=== PATIENT | female | born 1985 | race Asian ===

== ENCOUNTER 2017-05-16 06:05 | Inpatient (IN) | payer OTHER ==
--- NOTE | 2017-05-06 11:24 | HPE ---
DATE OF ADMISSION: 05/16/2017 She is booked for elective repeat section and bilateral tubal ligation by Filshie clip on 05/16/2017. This lady is a 31-year-old 2, para 1, last menstrual period (LMP) 09/07/2016, estimated date of confinement (EDC) 05/23/2017, booked for elective repeat section and bilateral tubal ligation by Filshie clip with satisfied parity. Her risk factors are a body mass index (BMI) is 38.78. She had had a previous section because of severe preeclampsia, hemolysis, elevated liver enzymes, low platelets (HELLP) syndrome, and she desires repeat section. She also had some elevated liver function studies. Bile acids were done, and hepatitis screen was all reported as normal. Her past history, as mentioned, in 2011 at 40 weeks 1 day, had a section because of significant HELLP syndrome. Her laboratories show she is O+, HIV negative, hepatitis negative, rapid plasma reagin (RPR) negative, rubella immune. Varicella immune. Pap was normal. Urine was positive with mixed remberto. Gonorrhea and chlamydia negative. 1-hour glucose was 129, and her 1-hour 28-week glucose was 135. CF was negative. On examination today, she does not appear in any acute distress. Symphysis fundus height is 37, vertex presenting. heart is 144. Her blood pressure is 116/72, respirations are 20, pulse is 92, temperature 98.6, and she is 211.6 pounds. She complains of some back pain 4/10, and she is still complaining of her left thigh numbness on the outer side. It has been that way for a prolonged period of time. Also, apparently on ultrasound, has a head circumference of at the 7th percentile. reviewed the area and said she could deliver and did not meet the two criteria parameters for microcephaly. The rest the examination is normal. She is normocephalic, atraumatic. Neck: Full range of motion. Pupils equal and reactive to light. Distal pulses symmetric. No evidence of deep venous thrombosis (DVT), pulmonary embolism (PE), or superficial phlebitis. No wheezes or rhonchi. No costovertebral angle (CVA) tenderness. Symphysis fundus height is appropriate. Nontender scar. Four quadrant bowel sounds are noted. Category one strip is present. No rashes, lesions, or pruritus. No arthralgia or myalgia. No complaint of cough, wheeze, shortness of breath, or dyspnea on exertion. No chest pain. No bleeding. Neuro complete. No incontinency, urgency, or frequency. No nausea, vomiting, diarrhea, or constipation. GYNECOLOGY (DENTAL MECHANIC) HISTORY: Is unremarkable. PAST MEDICAL HISTORY: Negative. PAST SURGICAL HISTORY: section. FAMILY HISTORY: Is noncontributory. She does not smoke, drink, abuse drugs. There is no domestic violence. She is to a soldier, and there is good support system there. We discussed the risks and benefits of section, including hemorrhage, infection, perforation, , reoperation, remote possibility of blood transfusion, remote possibility of a hysterectomy, remote possibility of laceration of the fetus, and remote possibility of admission to the intensive care unit (NICU). After expressed understanding of the procedure and risks and benefits, signed and witnessed the consent form, and we are awaiting operative date on 05/16/2017.
[~2017-05-16] VITALS: Ht 58.4 cm; Wt 95.0 kg
[~2017-05-16 06:05] MED LIST: CHILCHW10 PO
[2017-05-16 06:26] VITALS: BP 133/62
[2017-05-16 06:56] LABS: BASO % 0.4 % (0.0-1.0); EOS # 0.1 10^3/uL (0.0-0.50); EOS % 0.8 % (0.0-3.0); IMMATURE GRANULOCYTE % 1.9 % (0-0); LYMPH # 2.5 10^3/uL (1.5-4.5); LYMPH % 32.8 % (24.0-44.0); MEAN CORPUSCULAR HEMOGLOBIN 27.7 pg (27.0-33.0); MEAN CORPUSCULAR HGB CONC 33.1 g/dl (32.0-36.5); MEAN CORPUSCULAR VOLUME 83.8 fl (80.0-96.0); MONO # 0.6 10^3/uL (0.0-0.8); MONO % 7.8 % (0.0-5.0); NEUTROPHILS # 4.4 10^3/uL (1.8-7.7); NEUTROPHILS % 56.3 % (36.0-66.0); PLATELET COUNT, AUTOMATED 302 10^3/uL (150-450); RED CELL DISTRIBUTION WIDTH 14.6 % (11.5-14.5); WHITE BLOOD COUNT 7.7 10^3/uL (4.0-10.0)
[2017-05-16] MEDS ORDERED: ACETAMINOPHEN 650 MG SUPP PR ONE (07:00)
[2017-05-16] MEDS ORDERED: BICITRA 30ML SOLN UDC PO ONE (07:00)
[2017-05-16] MEDS ORDERED: AZITHROMYCIN INJ 500 MG, VIAL MATE ADAPTER 1 EACH in D5W 250 ML IV ONE (07:00)
[2017-05-16] MEDS ORDERED: BUPIVACAINE HCL 0.25% 10 ML VIAL XX ONE (07:00)
[2017-05-16] MEDS ORDERED: LR 1,000 ML IV ONE (07:00)
[2017-05-16] MEDS: LR 1,000 ML IV SCH ×3 (07:25→23:00)
[2017-05-16] MEDS ORDERED: MORPHINE PRES-FREE INJ 10 MG/10 ML VIAL (J2274) As Ordered ONE (07:51)
[2017-05-16] MEDS ORDERED: OXYTOCIN INJ 10 UNITS/ML VIAL (J2590) As Ordered ONE ×2 (07:52→09:47)
[2017-05-16] MEDS ORDERED: ONDANSETRON 4MG/2ML VIAL (J2405) As Ordered ONE (08:41)
[2017-05-16] MEDS ORDERED: ONDANSETRON 4MG/2ML VIAL (J2405) IV ONE (08:45)
[2017-05-16] MEDS: PRENATAL VITAMINS CHEWABLE TABLET PO SCH (09:00)
[2017-05-16] MEDS ORDERED: ePHEDrine SULFATE 25 MG/5 ML(5MG/ML) SYRINGE As Ordered ONE (09:24)
[2017-05-16] MEDS ORDERED: PHENYLephrine HCL 500 MCG/5 ML (100MCG/ML) SYRINGE (J2370) As Ordered ONE (09:24)
[2017-05-16 09:53] LABS: CORD GAS ABE A -2.6; CORD GAS HCO3 A 25.5 MEQ/L; CORD GAS O2 SAT A 61.3 %; CORD GAS PCO2 A 57.9 mmHg; CORD GAS PH A 7.262 UNITS; CORD GAS PO2 A 27.5 mmHg; CORD GAS SBC A 21.4 MEQ/L; CORD GAS TCO2 A 27.3 MEQ/L
[2017-05-16 09:54] LABS: CORD GAS ABE V -2.8; CORD GAS HCO3 V 22.9 MEQ/L; CORD GAS O2 SAT V 76.4 %; CORD GAS PCO2 V 43.4 mmHg; CORD GAS PH V 7.341 UNITS; CORD GAS PO2 V 33.1 mmHg; CORD GAS SBC V 21.6 MEQ/L; CORD GAS TCO2 V 24.3 MEQ/L
[2017-05-16] MEDS ORDERED: METOCLOPRAMIDE INJ 10MG/2ML VIAL (J2765) As Ordered ONE (09:59)
[2017-05-16] MEDS ORDERED: KETOROLAC 60 MG/2 ML VIAL (J1885) As Ordered ONE (10:05)
[2017-05-16] MEDS ORDERED: MEPERIDINE INJ 25 MG/ML VIAL (J2175) IV PRN (10:45)
[2017-05-16] MEDS ORDERED: LR 1,000 ML IV SCH (10:45)
[2017-05-16] MEDS ORDERED: fentaNYL 100 MCG/2 ML INJECTION (J3010) IV PRN (10:45)
[2017-05-16] MEDS ORDERED: ONDANSETRON 4MG/2ML VIAL (J2405) IV PRN (10:45)
[2017-05-16] MEDS ORDERED: METOCLOPRAMIDE INJ 10MG/2ML VIAL (J2765) IV PRN (10:45)
[2017-05-16] MEDS ORDERED: PERCOCET 5MG/325MG TAB PO PRN ×2 (10:45→11:00)
[2017-05-16] MEDS ORDERED: DOCUSATE SODIUM 100 MG CAP PO PRN (11:00)
[2017-05-16] MEDS ORDERED: RHOGAM 300 MCG (1500 IU) INJ (J2790) IM SCH (11:00)
[2017-05-16] MEDS ORDERED: MEASLES,MUMPS,RUBELLA VACCINE INJ (MMR-II) (90707) SC SCH (11:00)
[2017-05-16] MEDS ORDERED: MOM 30ML SUSPENSION UDC PO PRN (11:00)
[2017-05-16] MEDS ORDERED: METHYLERGONOVINE MALEATE 0.2 MG TAB PO PRN (11:00)
[2017-05-16] MEDS ORDERED: ANUSOL HC CREAM 30GM TOP PRN (11:00)
[2017-05-16 12:10] VITALS: BP 95/52
[2017-05-16 12:40] VITALS: BP 100/57
[2017-05-16 14:40] VITALS: BP 99/54
[2017-05-16] MEDS: PERCOCET 5MG/325MG TAB PO PRN ×2 (17:19→23:18)
[2017-05-16] MEDS: IBUPROFEN 800 MG TAB PO SCH (17:59)
[2017-05-16 18:00] VITALS: BP 114/58
[2017-05-16 22:00] VITALS: BP 112/58
[2017-05-17 02:00] VITALS: BP 110/60
[2017-05-17] MEDS: IBUPROFEN 800 MG TAB PO SCH ×3 (02:21→17:28)
[2017-05-17 05:41] VITALS: BP 98/58
[2017-05-17 06:52] LABS: MEAN CORPUSCULAR HEMOGLOBIN 27.9 pg (27.0-33.0); MEAN CORPUSCULAR HGB CONC 32.7 g/dl (32.0-36.5); MEAN CORPUSCULAR VOLUME 85.1 fl (80.0-96.0); RED CELL DISTRIBUTION WIDTH 14.5 % (11.5-14.5); WHITE BLOOD COUNT 8.8 10^3/uL (4.0-10.0)
[2017-05-17] MEDS: LR 1,000 ML IV SCH ×3 (07:00→23:00)
[2017-05-17 10:00] VITALS: BP 124/63
[2017-05-17] MEDS: PRENATAL VITAMINS CHEWABLE TABLET PO SCH (10:04)
[2017-05-17] MEDS: PERCOCET 5MG/325MG TAB PO PRN ×2 (12:59→21:17)
[2017-05-17 14:00] VITALS: BP 117/56
[2017-05-17 18:00] VITALS: BP 119/60
--- NOTE | 2017-05-17 19:27 | RO ---
DATE OF PROCEDURE: 05/16/2016 PREOPERATIVE DIAGNOSIS: Repeat section, satisfied parity, bilateral tubal ligation by Filshie clip. POSTOPERATIVE DIAGNOSIS: Repeat section, bilateral tubal ligation by Filshie clip. ANESTHESIA: Spinal and local anesthetic for intraperitoneal procedures. ESTIMATED BLOOD LOSS: 400 mL. SURGEON: Dr. Julien TEACHERS' ASSISTANT: Dr. Diop. DESCRIPTION: After adequate anesthesia in the supine position, a Martin catheter to the bladder draining clear urine with sequential on board antibiotics preoperatively appropriately. Reprepping and draping a small Pfannenstiel incision was made two fingerbreadths above symphysis pubis passing through abdominal layers securing hemostasis. Opening the peritoneal cavity, bladder reflected well down anteriorly low transverse incision made into the uterus and draining clear Liqua. We delivered a live female weighing 8 pounds 13 ounces 4000 grams. 8 and 9 at 1 and 5 minutes respectively. Placenta was manually removed. Three-vessel, cord, membranes and tissues intact. The uterus contracted well down under Pitocin. The arterial pH was 7.26, base excess -2.6, venous pH 7.34, base excess -2.8. With instrument and pad count correct, the uterus was closed in two layers using Vicryl 0 for the first layer and a Monocryl for the second layer. Reperitonealization was performed. With instrument and pad count correct we then questioned the patient about the tubal ligation. She responded the affirmative. Both tubes were visualized at the fimbriated end and a bilateral tubal ligation with Filshie clips was performed. With the instrument and pad count correct, we then closed the abdomen running stitch for the peritoneum, same for the fascia interrupted subcu Marcaine 0.25% to the skin, subcuticular stitch, spray and Telfa and the patient was taken back to the mother in good condition. Dr. Julien.
--- NOTE | 2017-05-17 19:46 | IPN ---
DATE: 05/17/2017 This lady had a repeat section and bilateral tubal ligation by Filshie clip after satisfied parity, female 8 pounds 13 ounces, 4000 grams, scores of 8 and 9 at one and five minutes, respectively. Arterial pH was 7.26, base excess -2.6, venous pH 7.34, base excess -2.8. Her vital signs this morning, her blood pressure 98/58, respirations are 18, pulse 79 and temperature 97.8. Her admitting hemoglobin was 13.3, hematocrit 40.2 and platelets are 302. day #1 hemoglobin is pending. We discussed phlebitis, cystitis, mastitis, endometritis and cellulitis, diet, exercise, pain management, perineal, breast and wound care. The rest of the examination is unremarkable. Chest is clear bilaterally to bases. No wheezes or rhonchi. No costovertebral angle tenderness. Thyroid is midline. No jugular venous distention (JVD), bruits. Abdomen is soft. Bowel sounds are noted. Incision is clean and dry. Lochia is moderate, normal for day one. The patient is mobilizing. She expressed that she voided this morning and is expecting to have a bowel movement at any time. In summary, we have a term gestation, repeat section, bilateral tubal ligation, anxious for discharge tomorrow.
[2017-05-17 21:53] VITALS: BP 114/60
[2017-05-18] MEDS: IBUPROFEN 800 MG TAB PO SCH (01:50)
[2017-05-18] MEDS: PERCOCET 5MG/325MG TAB PO PRN ×2 (03:41→09:08)
[2017-05-18 06:00] VITALS: BP 99/56
--- NOTE | 2017-05-18 06:55 | DS.PDOC ---
Discharge Summary General Date of Admission May 16, 2017 at 06:05 Date of Discharge [id number] Discharge Summary PROCEDURES PERFORMED DURING STAY: Primary delivery ADMITTING DIAGNOSIS: 1. Scheduled DISCHARGE DIAGNOSES: 1. Healthy HOSPITAL COURSE: Admitted for scheduled . Uncomplicated, see operative note. DISCHARGE MEDICATIONS: Motrin, Tylenol #3, Percocet, Colace, Lanolin, Dibucaine (all rx'd by Dr uJlien), will not mix the Tyl #3 or percocet Physical exam: see note from this morning LABORATORY DATA: Please see below. ACTIVITY: as tolerated. Nothing in vagina for 6 weeks. No driving for 2 weeks. No bathing for 4 weeks. DIET: regular DISPOSITION:stable TIME SPENT ON DISCHARGE: Greater than 15 minutes. Sessions Vital Signs/I&Os Vital Signs Date Time Temp Pulse Resp B/P (MAP) Pulse Ox O2 Delivery O2 Flow Rate FiO2 05/18/17 06:00 97.1 73 18 99/56 (70) 98 Room Air Discharge Medications Scheduled (Childrens Gummies) 1 Chw Chw, 2 CHW PO DAILY, (Reported) Allergies Coded Allergies: No Known Allergies (Unverified , 05/09/17) SESSIONS,LUKE Casillas MD May 18, 2017 06:55
--- NOTE | 2017-05-18 06:58 | IPNPDOC ---
Text Note Date of Service The patient was seen on 05/18/17. NOTE POD2 prog note States feeling well, no complaints. No heavy VB. Pain controlled. Voiding, ambulatory. Bonding well and breast feeding well. VSSAF CTAB RRR Ut at U-2, firm Ext no [employer] CDI a/p: Doing well. d/c this morning. To bonding if baby not released. Sessions VS,[place], I+O VSTrinidad I+O Vital Signs Date Time Temp Pulse Resp B/P (MAP) Pulse Ox O2 Delivery O2 Flow Rate FiO2 05/18/17 06:00 97.1 73 18 99/56 (70) 98 Room Air SESSIONS,LUKE Casillas MD May 18, 2017 06:58
[2017-05-18] MEDS ORDERED: IBUP-1114 PO (09:04)
[2017-05-18] MEDS ORDERED: COLA100C5 PO (09:04)
[2017-05-18] MEDS ORDERED: PRENTAB9 PO (09:04)
[2017-05-18] MEDS ORDERED: OXYC1TAB23 PO (09:04)
[2017-05-18] MEDS: PRENATAL VITAMINS CHEWABLE TABLET PO SCH (09:06)
== END 2017-05-18 11:30 | disposition home or self-care (01) | DRG 766 ==
LOC: M LDI 06:05 → M OBS 12:12
PROVIDERS: ADMIT Obstetrics & Gynecology; ATTEND Obstetrics & Gynecology
PROC: 0UL70DZ Occlusion of Bilateral Fallopian Tubes with Intraluminal Device, Open Approach (ICD-10-PCS; 2017-05-16)
PROC: 10D00Z1 Extraction of Products of Conception, Low, Open Approach (ICD-10-PCS; principal; 2017-05-16 08:30)
DX: O34.211 Maternal care for low transverse scar from previous cesarean delivery (principal); Z37.0 Single live birth; Z30.2 Encounter for sterilization; Z68.38 Body mass index [BMI] 38.0-38.9, adult

== ENCOUNTER → 2018-11-16 | Outpatient (CLI) | payer SELFPAY ==
[~2018-11-16] MED LIST changes: +COLA100C5 PO; +IBUP-1114 PO; +OXYC1TAB23 PO; +PRENTAB9 PO
--- NOTE | 2018-11-16 14:41 | REP ---
Clinical: Tuberculosis screening . Comparison: 03/07/2018 . Technique: PA and lateral. Findings: The mediastinum and cardiac silhouette are normal. The lung smith are clear and without acute consolidation, effusion, or pneumothorax. The skeletal structures are intact and normal. Impression: 1. No acute cardiopulmonary process. Electronically Signed by Rickey Cervantes MD 11/16/2018 02:32 P
== END ==
LOC: M WUC 14:21
PROVIDERS: ATTEND Family Medicine Adult Medicine
DX: Z11.1 Encounter for screening for respiratory tuberculosis (principal)

== ENCOUNTER → 2018-11-20 | Outpatient (REF) | payer OTHER | LOC: M SFHCLERA 18:34 | PROVIDERS: ATTEND Physician Assistant | DX: R31.9 Hematuria, unspecified (principal) ==

== ENCOUNTER 2019-02-03 04:42 | Inpatient (IN) | payer BC, OTHER ==
[~2019-02-03] VITALS: Ht 147.3 cm; Wt 110.5 kg
[2019-02-03 05:13] LABS: BASO % 0.4 % (0.0-1.0); HEMATOCRIT 48.5 % (36.0-47.0); HEMOGLOBIN 16.1 g/dl (12.0-15.5); LYMPH # 0.7 10^3/uL (1.5-4.5); LYMPH % 7.2 % (24.0-44.0); MEAN CORPUSCULAR HEMOGLOBIN 29.3 pg (27.0-33.0); MEAN CORPUSCULAR HGB CONC 33.2 g/dl (32.0-36.5); MEAN CORPUSCULAR VOLUME 88.3 fl (80.0-96.0); MONO # 0.1 10^3/uL (0.0-0.8); MONO % 0.5 % (0.0-5.0); NEUTROPHILS # 8.9 10^3/uL (1.8-7.7); NEUTROPHILS % 90.5 % (36.0-66.0); PLATELET COUNT, AUTOMATED 268 10^3/uL (150-450); RED BLOOD COUNT 5.49 10^6/uL (4.00-5.40); WHITE BLOOD COUNT 9.8 10^3/uL (4.0-10.0)
[2019-02-03] MEDS ORDERED: IBUP-1114 PO (05:16)
[2019-02-03] MEDS ORDERED: NS 1,000 ML IV ONE ×2 (05:30→06:45)
[2019-02-03] MEDS ORDERED: ONDANSETRON 4MG/2ML VIAL (J2405) IV ONE (05:30)
[2019-02-03 05:31] LABS: HCG, SERUM QUALITATIVE NEGATIVE (NEGATIVE)
[2019-02-03 05:37] LABS: ALBUMIN 3.3 GM/DL (3.2-5.2); ALT/SGPT 44 U/L (12-78); BILIRUBIN,DIRECT 0.5 MG/DL (0.0-0.2); BLOOD UREA NITROGEN 13 MG/DL (7-18); CARBON DIOXIDE LEVEL 26 MEQ/L (21-32); CHLORIDE LEVEL 100 MEQ/L (98-107); CREATININE FOR GFR 0.84 MG/DL (0.55-1.30); GLOMERULAR FILTRATION RATE > 60.0 (>60); GLUCOSE, FASTING 134 MG/DL (70-100); LIPASE 102 U/L (73-393); POTASSIUM SERUM 3.7 MEQ/L (3.5-5.1); SODIUM LEVEL 137 MEQ/L (136-145); TOTAL PROTEIN 8.3 GM/DL (6.4-8.2)
[2019-02-03] MEDS ORDERED: ISOVUE-370 76% 100ML VIAL (Q9967) As Ordered ONE (05:42)
[2019-02-03] MEDS ORDERED: ACETAMINOPHEN TAB 650MG DOSE (2X325MG) PO ONE (05:45)
[2019-02-03] MEDS ORDERED: DILUENT IV ONE (06:45)
[2019-02-03] MEDS ORDERED: PIPERACILLIN/TAZOBACTAM SOD 3.375 GM in D5W MINI-BAG PLUS 50 ML IV ONE (06:45)
[2019-02-03] MEDS ORDERED: NS IV ONE (06:45)
[2019-02-03] MEDS ORDERED: GNP200CA2 PO (08:54)
--- NOTE | 2019-02-03 09:07 | REPVR ---
EXAM: CT Abdomen and Pelvis With Contrast EXAM DATE/TIME: 02/03/2019 7:51 AM CLINICAL HISTORY: 33 years old, female; Abdominal pain; Localized; Right lower quadrant (rlq); Additional info: Right sided abd pain, sirs TECHNIQUE: Imaging protocol: Axial computed tomography images of the abdomen and pelvis with intravenous contrast. Coronal and sagittal reformatted images were created and reviewed. Radiation optimization: All CT scans at this facility use at least one of these dose optimization techniques: automated exposure control; mA and/or kV adjustment per patient size (includes targeted exams where dose is matched to clinical indication); or iterative reconstruction. Contrast material: [id number]; Contrast volume: 100 ml; Contrast route: IV; COMPARISON: No relevant prior studies available. FINDINGS: Lungs: Mild bibasilar atelectasis. No consolidation. Mediastinum: Small hiatal hernia. ABDOMEN: Liver: There is hepatomegaly with diffuse heterogeneous fatty infiltration of the liver. Gallbladder and bile ducts: No calcified gallstones. No ductal dilatation. Pancreas: The pancreas is unremarkable. No ductal dilatation. Spleen: The spleen is unremarkable in appearance. Adrenals: The adrenal glands are unremarkable. No mass. Kidneys and ureters: Symmetric nephrograms. No hydronephrosis. Right kidney is shifted on its axis and low in position. Stomach and bowel: The stomach is decompressed. There is no bowel obstruction. The majority of the colon is decompressed. No significant bowel wall thickening. Appendix: The appendix is dilated measuring up to 1.8 cm transverse. There is periappendiceal inflammatory stranding as well as few punctate appendicoliths within the appendiceal lumen. These findings are consistent with acute appendicitis. PELVIS: Bladder: Unremarkable as visualized. Reproductive: Bilateral tubal ligation clips. ABDOMEN and PELVIS: Intraperitoneal space: Trace free fluid within the cul-de-sac. No significant free fluid or loculated fluid collections. No free air. Bones/joints: Bilateral sacroiliitis. Mild degenerative change within the lower thoracic and lumbar spine. No acute fracture. Soft tissues: Small fat containing umbilical hernia. There is also diastasis of the rectus abdominis. Vasculature: Normal. No abdominal aortic aneurysm. Lymph nodes: There are small and mildly prominent right lower quadrant lymph nodes measuring up to 1.3 cm which are nonspecific and likely reactive. IMPRESSION: 1. Acute appendicitis. No evidence of perforation or abscess. 2. Small and mildly prominent right lower quadrant lymph nodes are nonspecific and likely reactive. 3. Hepatomegaly with diffuse fatty infiltration of the liver. 4. Additional non-emergent findings, as discussed above. THIS REPORT CONTAINS FINDINGS THAT MAY BE CRITICAL TO PATIENT CARE. The findings were verbally communicated via telephone conference with Kori Rivera, at 8:43 AM EDT on 02/03/2019. The findings were acknowledged and understood. Electronically signed by: Rickey Nicholas On 02/03/2019 09:07:14 AM
[2019-02-03] MEDS ORDERED: METOCLOPRAMIDE INJ 10MG/2ML VIAL (J2765) IV PRN (10:30)
[2019-02-03] MEDS ORDERED: MORPHINE 4 MG/ML 1ML VIAL/SYRINGE (J2270) IV PRN (10:30)
[2019-02-03] MEDS ORDERED: KETOROLAC 30 MG/ML VIAL (J1885) IV PRN (10:30)
[2019-02-03] MEDS ORDERED: ONDANSETRON 4MG/2ML VIAL (J2405) IV PRN (10:30)
[2019-02-03] MEDS: LR 1,000 ML IV SCH (11:46)
[2019-02-03] MEDS ORDERED: MORPHINE 2 MG/ML 1ML SYRINGE (J2270) As Ordered ONE (12:31)
[2019-02-03] MEDS ORDERED: BUPIVACAINE HCL 0.25% 30 ML VIAL As Ordered ONE (12:41)
[2019-02-03] MEDS ORDERED: ZOSYN 3.375 GM VIAL (J2543) As Ordered ONE (14:18)
[2019-02-03] MEDS ORDERED: ONDANSETRON 4MG/2ML VIAL (J2405) As Ordered ONE (14:40)
[2019-02-03] MEDS ORDERED: fentaNYL 100 MCG/2 ML INJECTION (J3010) As Ordered ONE ×2 (14:40→14:41)
[2019-02-03] MEDS ORDERED: dexameTHASONE 4 MG/ML 1ML VIAL (J1100) As Ordered ONE (14:40)
[2019-02-03] MEDS ORDERED: DESFLURANE 240 ML INHALANT As Ordered ONE (14:40)
[2019-02-03] MEDS ORDERED: PROPOFOL 200 MG/20 ML VIAL As Ordered ONE (14:40)
[2019-02-03] MEDS ORDERED: fentaNYL 250 MCG/5 ML INJECTION (J3010) As Ordered ONE (14:40)
[2019-02-03] MEDS ORDERED: LIDOCAINE 2% INJ 100 MG/5 ML SDV (FOR ANES.) As Ordered ONE (14:40)
[2019-02-03] MEDS ORDERED: METOCLOPRAMIDE INJ 10MG/2ML VIAL (J2765) As Ordered ONE (14:40)
[2019-02-03] MEDS ORDERED: MIDAZOLAM INJ 2 MG/2 ML VIAL (J2250) As Ordered ONE (14:40)
[2019-02-03] MEDS ORDERED: SUGAMMADEX SODIUM 500 MG/5 ML VIAL (BRIDION) As Ordered ONE (14:40)
[2019-02-03] MEDS ORDERED: ROCURONIUM BROMIDE 50 MG/5 ML VIAL As Ordered ONE (14:40)
--- NOTE | 2019-02-03 15:30 | HPE ---
DATE OF ADMISSION: 02/03/2019 ADMITTING DIAGNOSIS: Acute appendicitis. HISTORY OF PRESENT ILLNESS: The patient is a 33-year-old woman who presented to the emergency department at 04:45 in the morning approximately on February 03 complaining of 2 days of abdominal pain with some nausea and vomiting and fever. She apparently suggested to the emergency department that she had been having some right lower quadrant discomfort. She had been unable to keep anything oral down. The patient was noted be quite tachycardiac on presentation and was also found to have a temperature of 102 degrees. Blood pressure was stable. She underwent evaluation with some basic laboratory studies and had a CT scan of the abdomen and pelvis. This shows marked dilation and inflammation of the appendix consistent with appendicitis and I was consulted. ALLERGIES: The patient has NO KNOWN DRUG ALLERGIES. MEDICATIONS: The patient takes no routines prescription medications. PAST SURGICAL HISTORY: The patient has had two sections and had a tubal ligation with her last section. MEDICAL HISTORY: The patient has morbid obesity. She reports that she had issues with hypertension during her first and with diabetes during her second . FAMILY HISTORY: Negative for any significant heritable conditions. REVIEW OF SYSTEMS: The patient denies any history of seizure or stroke. She denies any history of heart disease or breathing problems. She reports no bone or joint problems. She has no history of deep vein thrombosis (DVT) or pulmonary embolus. PHYSICAL EXAMINATION: Reveals a pleasant, morbidly obese woman lying quietly on the hospital stretcher. She is alert and appears somewhat uncomfortable. Skin: Is warm and dry. Sclerae are anicteric. Neck is supple. Heart: Exam shows a regular rhythm at about 110. Lungs are clear to auscultation. The abdomen is obese. She does have bowel sounds present. The abdomen is soft. She has some mild tenderness in the upper abdomen fairly diffusely. There is also some tenderness far laterally on the right in the mid to lower abdomen. She has an old low transverse scar. Lower extremities are without edema and show palpable dorsalis pedis pulses. LABORATORY STUDIES: Include a CBC that shows a white count of 10, hemoglobin of 16, hematocrit of 48, and platelet count of 268,000. Differential count shows 90% neutrophils, 7% lymphocytes. Chemistry profile shows a sodium of 137, potassium 3.7, chloride 100, CO2 of 26, BUN of 13, creatinine 0.8, and a glucose of 134. At the time of presentation she had a lactic acid of 3.5. Total bilirubin is 2.0, though her other liver function tests are unremarkable other than a slight elevation of the alkaline phosphatase 282. Her HCG is negative and her lipase is 102. CT scan imaging I reviewed personally. She has definitely a significantly enlarged and dilated appendix with surrounding inflammatory changes. The radiologist reported findings consistent with fatty infiltration of the liver. She does have clips in the pelvis consistent with a prior tubal ligation. IMPRESSION: 1. Acute appendicitis. 2. Morbid obesity. PLAN: The patient and her spouse were counseled regarding the diagnosis of appendicitis in the treatment. She has received a dose of Zosyn in the emergency department and this will be continued until at least after surgery. She does not by CT scan appear to have perforation as there is no significant free fluid. She has had symptoms for 2 days and that certainly raises the possibility that she could rupture at any time. She was counseled for a laparoscopic appendectomy to include the possibility that we would need to convert to an open procedure. She had an opportunity to ask questions and desires to proceed. She will be added to the schedule for today and we will try to expedite this as much as possible. She will be kept nothing by mouth for now.
[2019-02-03] MEDS ORDERED: ACETAMINOPHEN 1000MG 100ML IV BTL (OFIRMEV) (J0131 PER 10MG) As Ordered ONE ×2 (16:00→18:45)
[2019-02-03] MEDS ORDERED: IBUPROFEN 400 MG TAB PO PRN (16:00)
[2019-02-03] MEDS ORDERED: ACETAMINOPHEN TAB 650MG DOSE (2X325MG) PO PRN (16:00)
[2019-02-03] MEDS ORDERED: fentaNYL 100 MCG/2 ML INJECTION (J3010) IV PRN (16:15)
[2019-02-03] MEDS ORDERED: PROMETHAZINE INJ 25 MG/ML VIAL (J2550) IV PRN (16:15)
[2019-02-03] MEDS ORDERED: LR 1,000 ML IV SCH (16:15)
[2019-02-03] MEDS ORDERED: oxyCODONE 5MG TAB As Ordered ONE (16:28)
[2019-02-03 16:45] VITALS: BP 133/69
[2019-02-03] MEDS ORDERED: oxyCODONE 5MG TAB PO PRN (16:45)
[2019-02-03 17:15] VITALS: BP 133/69
[2019-02-03] MEDS: PIPERACILLIN/TAZOBACTAM SOD 3.375 GM in D5W MINI-BAG PLUS 50 ML IV SCH ×2 (17:37→19:53)
[2019-02-03 17:42] VITALS: BP 130/67
[2019-02-03 18:40] VITALS: BP 124/60
[2019-02-03 19:54] VITALS: BP 112/65
[2019-02-03 21:00] VITALS: BP 99/54
[2019-02-04] VITALS: BP 99/55
[2019-02-04] MEDS: LR 1,000 ML IV SCH ×4 (00:45→20:53)
[2019-02-04] MEDS: PIPERACILLIN/TAZOBACTAM SOD 3.375 GM in D5W MINI-BAG PLUS 50 ML IV SCH ×4 (02:00→20:53)
[2019-02-04 04:00] VITALS: BP 108/67
[2019-02-04] MEDS: NORCO, ANEXSIA 5/325MG TABLET (HYDROcodone/ACETAMINOPHEN) PO PRN ×3 (06:10→21:04)
[2019-02-04 06:38] LABS: BASO % 0.1 % (0.0-1.0); HEMATOCRIT 38.5 % (36.0-47.0); LYMPH # 1.6 10^3/uL (1.5-4.5); LYMPH % 7.6 % (24.0-44.0); MEAN CORPUSCULAR HEMOGLOBIN 28.7 pg (27.0-33.0); MEAN CORPUSCULAR HGB CONC 31.7 g/dl (32.0-36.5); MEAN CORPUSCULAR VOLUME 90.6 fl (80.0-96.0); MONO # 0.9 10^3/uL (0.0-0.8); MONO % 4.6 % (0.0-5.0); PLATELET COUNT, AUTOMATED 202 10^3/uL (150-450); RED BLOOD COUNT 4.25 10^6/uL (4.00-5.40); WHITE BLOOD COUNT 20.7 10^3/uL (4.0-10.0)
[2019-02-04 06:50] LABS: HEMOGLOBIN 12.2 g/dl (12.0-15.5)
[2019-02-04 07:02] LABS: ALBUMIN 2.3 GM/DL (3.2-5.2); ALT/SGPT 42 U/L (12-78); BILIRUBIN,TOTAL 1.2 MG/DL (0.2-1.0); BLOOD UREA NITROGEN 8 MG/DL (7-18); CALCIUM LEVEL 8.2 MG/DL (8.5-10.1); CARBON DIOXIDE LEVEL 33 MEQ/L (21-32); CHLORIDE LEVEL 106 MEQ/L (98-107); GLOMERULAR FILTRATION RATE > 60.0 (>60); GLUCOSE, FASTING 138 MG/DL (70-100); POTASSIUM SERUM 4.2 MEQ/L (3.5-5.1); SODIUM LEVEL 141 MEQ/L (136-145); TOTAL PROTEIN 6.4 GM/DL (6.4-8.2)
[2019-02-04 08:00] VITALS: BP 129/81
[2019-02-04 12:00] VITALS: BP 125/87
[2019-02-04 16:00] VITALS: BP 139/72
[2019-02-04 20:00] VITALS: BP 132/74
--- NOTE | 2019-02-04 23:23 | IPN ---
DATE: 02/04/2019 HISTORY: The patient is now postop day #1 from a laparoscopic appendectomy for gangrenous appendicitis. Because of the gangrene and some spillage of purulence at the time of surgery, a Bandar drain was placed into the right lower quadrant through a stab wound on the right. She has been doing well today. Her diet was advanced through clear liquids to regular food. She has been up ambulating and is voiding well. She reports fairly mild discomfort. Vital Signs: Show that she has been afebrile since surgery. Her pulse is in the 70s and her blood pressure is normal. Intake and output shows that yesterday she had 6300 mL in with 850 out. She has had 58 mL out of her drain so far today. PHYSICAL EXAM: Shows the patient lying quietly on the hospital bed. She is alert and oriented. Heart and lung exams are unremarkable. The abdomen remains quite obese. Her dressings are dry. The drain on the right shows only some minimal serosanguineous fluid in the bulb. LABORATORY STUDIES: She had a CBC this morning that showed a white count of 21,000 with hemoglobin 12, hematocrit of 38 and a platelet count of 202,000. Differential count showed 87% neutrophils, 8% lymphocytes and 5% monocytes. Chemistry profile showed normal electrolytes with a BUN of 8, creatinine 0.6 and a glucose of 138. IMPRESSION: The patient is doing well now one day postop from laparoscopic appendectomy for gangrenous appendicitis. Her white count was quite elevated this morning, but she remains afebrile. PLAN: I am going to keep her on intravenous (IV) antibiotics another day and encourage her to be up ambulating. We will recheck her CBC in the morning, and if her white count has returned to normal, she will be discharged home on some antibiotics with her drain in place.
[2019-02-05] VITALS: BP 130/61
[2019-02-05] MEDS: PIPERACILLIN/TAZOBACTAM SOD 3.375 GM in D5W MINI-BAG PLUS 50 ML IV SCH ×4 (02:45→20:30)
[2019-02-05 04:00] VITALS: BP 106/60
[2019-02-05] MEDS: LR 1,000 ML IV SCH ×2 (06:28→17:15)
[2019-02-05] MEDS: NORCO, ANEXSIA 5/325MG TABLET (HYDROcodone/ACETAMINOPHEN) PO PRN ×3 (06:28→20:30)
[2019-02-05 06:59] LABS: BASO % 0.3 % (0.0-1.0); EOS # 0.2 10^3/uL (0.0-0.50); EOS % 1.5 % (0.0-3.0); HEMATOCRIT 35.6 % (36.0-47.0); HEMOGLOBIN 11.4 g/dl (12.0-15.5); LYMPH # 2.3 10^3/uL (1.5-4.5); MEAN CORPUSCULAR HEMOGLOBIN 28.9 pg (27.0-33.0); MEAN CORPUSCULAR VOLUME 90.4 fl (80.0-96.0); MONO # 0.8 10^3/uL (0.0-0.8); MONO % 7.3 % (0.0-5.0); NEUTROPHILS # 7.9 10^3/uL (1.8-7.7); NEUTROPHILS % 70.4 % (36.0-66.0); PLATELET COUNT, AUTOMATED 200 10^3/uL (150-450); RED BLOOD COUNT 3.94 10^6/uL (4.00-5.40); WHITE BLOOD COUNT 11.3 10^3/uL (4.0-10.0)
--- NOTE | 2019-02-05 07:53 | RO ---
DATE OF PROCEDURE: 02/03/2019 PREOPERATIVE DIAGNOSIS: Acute appendicitis. POSTOPERATIVE DIAGNOSIS: Acute gangrenous appendicitis. PROCEDURE PERFORMED: Laparoscopic appendectomy. SURGEON: Dr. Tim Hodge CASE LINER: ANESTHESIA: General. INDICATIONS FOR PROCEDURE: Patient is a 33-year-old morbidly obese woman who presented to the hospital with a 2-day history of abdominal pain. She had a marked fever, nausea and vomiting. A CT scan was performed that showed significant dilation and inflammation of the appendix consistent with appendicitis and she is now for laparoscopic appendectomy. OPERATIVE PROCEDURE: The patient was brought to the operating room and placed on the table in a supine position. She was placed under general endotracheal anesthesia. The patient's abdomen was prepped and draped in a sterile fashion. 0.25% Marcaine was infiltrated at each of the trocar sites as needed. A short supraumbilical midline incision was made and deepened down to the fascia. A Veress needle was inserted and after positive hanging drop test the abdomen was inflated with carbon dioxide gas. The fascia was then incised and a 12 mm trocar placed through the fascia. Insufflation continued and the laparoscope was placed. The liver was partially seen and appeared normal. A portion of the gallbladder was seen and this was noninflamed. Visualized portions of the small and large bowel appeared normal. The patient was tilted to a Trendelenburg position and rolled to the left. A 5 mm trocar was placed in the right lower quadrant slightly to the right of the midline and a third trocar also 5 mm was placed in the left lower quadrant slightly to the left of the midline. Graspers were inserted. The cecum was identified. Inspecting just inferior to this, the appendix was identified. There was a small amount of hemorrhage identified around the appendix and supporting tissues and the appendix itself appeared hemorrhagic and gangrenous. This was grasped and elevated. This was found to be just superior to the right ovary which was sitting at the pelvic brim. Some filmy attachments around the base of the appendix were divided using the hook cautery. Dissection was carried out to free the appendix. Within the course of mobilizing the appendix, the appendix was ruptured with release of some pus just into a small area adjacent to the appendix. This was aspirated and then copiously irrigated with the suction document control clerk. The appendix was isolated down to its base where the junction with the cecum was stapled with a linear cutter stapler with a green load. The remaining supporting soft tissues of the mesoappendix were then divided with a white load stapler. The appendix was placed in an Endopouch. The right lower quadrant was irrigated and a few fragments of debris removed were removed with graspers. A small bleeding point along the staple line was controlled with the cautery. Final inspection revealed no evidence of bleeding and no obvious residual contamination. I elected to place a Bandar drain into the right lower quadrant across the bed of the appendix. A trocar from a 5 mm port was placed through the abdominal wall far laterally in the right midabdomen and the 19-Brazilian Bandar drain was then inserted through the midline port and out through this far lateral port. The drain was placed along the lateral aspect of the ascending colon and directly through the area where the appendix had been. The patient was returned to a flat position. The abdomen was deflated and the trocars were removed. The appendix was recovered through the supraumbilical site which necessitated extending the fascial incision slightly. The appendix was sent for permanent pathology. The fascia at the midline was closed with interrupted simple sutures of #2-0 (cut off). The skin incisions were all closed with buried #5-0 Monocryl and Steri-Strips. The drain was sutured to the skin with a #2-0 silk and the site was dressed with a chlorhexidine gluconate OpSite. 2x2s were applied to the other incisions. The patient tolerated the procedure well without apparent complication. She was awakened in the operating room, extubated and moved to the recovery room in stable condition.
[2019-02-05 08:00] VITALS: BP 140/88
[2019-02-05 12:00] VITALS: BP 147/90
[2019-02-05 16:00] VITALS: BP 134/92
[2019-02-05 20:00] VITALS: BP 141/79
[2019-02-06] MEDS: LR 1,000 ML IV SCH ×2 (01:45→07:44)
[2019-02-06] MEDS: PIPERACILLIN/TAZOBACTAM SOD 3.375 GM in D5W MINI-BAG PLUS 50 ML IV SCH ×2 (01:46→07:42)
[2019-02-06] MEDS: NORCO, ANEXSIA 5/325MG TABLET (HYDROcodone/ACETAMINOPHEN) PO PRN ×2 (01:46→07:43)
[2019-02-06 02:00] VITALS: BP 100/51
[2019-02-06 04:00] VITALS: BP 120/69
[2019-02-06 08:00] VITALS: BP 159/98
--- NOTE | 2019-02-06 10:13 | IPN ---
DATE: 02/05/2019 HISTORY: The patient is now postop day #2 from a laparoscopic appendectomy for gangrenous appendicitis. She had presented appearing quite ill. I was called by the nursing floor today to report that the microbiology lab indicated that she had E-coli coming up positive on a blood culture from the time of her emergency room (ER) presentation. She has been doing better today with less discomfort. She is tolerating a regular diet. Vital signs show that she has been afebrile over the past 24 hours with a pulse in the 60s and 70s. Her blood pressure is good. Intake and output show that yesterday she had 3900 in with 600 of output. Her drain had 76 mL. PHYSICAL EXAMINATION: The patient is lying quietly on the hospital bed. Heart exam shows a regular rate and rhythm. The lungs are clear. The abdomen remains quite obese. Her dressings are clean and dry and the incisions underneath are clean. She has a drain in the right lateral abdomen. There was some clot in the tubing and once I had milked this through the tubing the drainage was largely serous. LABORATORY STUDIES: Show a white count of 11, hemoglobin of 11, hematocrit of 36, and platelet count of 200,000. Differential count showed 70% neutrophils, 20% lymphocytes and 7% monos. The blood culture from the emergency department shows E-coli which is sensitive to all tested antibiotics. IMPRESSION: The patient appears to be doing somewhat better today. It does not appear that we can remove her drain today. PLAN: Will continue her drain. Given her positive blood culture, I will continue her on one additional day of IV antibiotics. I encouraged her to be up ambulating in the hallway. She can take a regular diet as tolerated. I would anticipate that she will be ready for discharge in the morning and will send her home with some antibiotics to complete at least a week of antibiotics.
[2019-02-06] MEDS ORDERED: HYDR-4571 PO (10:15)
[2019-02-06] MEDS ORDERED: AUGM875T28 PO (10:15)
--- NOTE | 2019-02-06 18:08 | IPN ---
DATE: 02/06/2019 HISTORY: Patient is now postoperative day #3 from laparoscopic appendectomy for gangrenous appendicitis. She had a positive blood culture for Escherichia (E) coli come back yesterday. The sensitivities now show that the E-coli is sensitive to multiple antibiotics. She is feeling better today with less discomfort. VITAL SIGNS: Vital signs show that she has been afebrile for the past 24 hours. Her pulse has ranged in the 50s to 80s. Blood pressure is excellent and her room air oxygen saturation is normal. Intake and output show that yesterday she had 3400 mL in with 1200 of urine output recorded. She had 150 mL from her drain. She had 90 mL from her drain this morning. Her urine output has been brisk overnight at 1800 mL. PHYSICAL EXAMINATION: Shows that the patient is dozing quietly in bed. When wakened, she is alert and oriented. She appears comfortable. The abdomen remains obese, but soft and she has active bowel sounds. Her dressings are dry and the wounds are clean. Her drain is putting out some clear serous fluid this morning and the site is clean. Microbiology, as reported, showed E-coli in her blood culture from 02/03/2019. This is sensitive to multiple antibiotics. She has been on Zosyn. IMPRESSION: Patient is doing well. She shows no signs of an active infection at this point. PLAN: Patient will be discharged home on antibiotics because of her E-coli bacteremia. I will put her on Augmentin for the next five days with twice daily dosing of 875/125 tablets. She has requested some analgesics and I will give her a prescription for 12 [place] tablets that she can take as often as one four times a day and she was advised to diminish her use of these and stop. We will remove her drain prior to discharge and she can shower 24 hours after the drain has been removed. She should follow up with me in 10 days and call or return to the emergency department for any problems.
== END 2019-02-06 11:15 | disposition home or self-care (01) | DRG 225 ==
LOC: M ED 04:42 → M SDC 10:27 → M PED 16:40 → M SDC 02-04 22:19 → M PED 02-04 22:20
PROVIDERS: ADMIT Surgery; ATTEND Surgery
PROC: 0DTJ4ZZ Resection of Appendix, Percutaneous Endoscopic Approach (ICD-10-PCS; principal; 2019-02-03 12:00)
DX: K35.891 Other acute appendicitis without perforation, with gangrene (principal); E66.01 Morbid (severe) obesity due to excess calories; Z68.43 Body mass index [BMI] 50.0-59.9, adult

== ENCOUNTER 2019-08-23 14:31 | Emergency (ER) | payer OTHER, BC ==
[~2019-08-23] VITALS: Ht 147.3 cm; Wt 90.9 kg
[~2019-08-23 14:31] MED LIST changes: +AUGM875T28 PO; +GNP200CA2 PO; +HYDR-4571 PO
[2019-08-23] MEDS ORDERED: IBUPROFEN 800 MG TAB PO ONE (15:30)
[2019-08-23] MEDS ORDERED: ONDANSETRON 4 MG ORAL DISINTEGRATING TAB (Q0162 PER 1MG) PO ONE (15:30)
--- NOTE | 2019-08-23 15:57 | REP ---
CT brain: 08/23/2019. Indication: Head trauma. Comparison: None. Technique: Unenhanced axial CT images of the brain were obtained from skull base to vertex with coronal reconstructions provided. Findings: There is no acute intracranial hemorrhage, acute cortical infarction, mass effect, hydrocephalus or acute calvarial fracture. No air-fluid levels are present within the visualized paranasal sinuses/mastoid air cells. Impression: No acute intracranial process. Electronically Signed by Bahman Charles DO 08/23/2019 03:49 P
--- NOTE | 2019-08-23 16:01 | REP ---
CT cervical spine: 08/23/2019. Indication: Cervical spine trauma. Comparison: None. Findings: There is no acute fracture, subluxation or dislocation. There is straightening of the cervical spine lordosis. C4 interosseous vertebral hemangioma is noted. There is a dominant 2.2 cm right thyroid nodule. There is no hemorrhage or additional acute post traumatic sequelae within the spinal canal detected. Impression: No acute osseous injury of the cervical spine. Dominant right thyroid nodule. Clinical correlation and likely sonographic biopsy are recommended. Electronically Signed by Bahman Charles DO 08/23/2019 03:53 P
[2019-08-23 16:36] LABS: BASO % 0.4 % (0.0-1.0); EOS # 0.1 10^3/uL (0.0-0.5); EOS % 1.2 % (0.0-3.0); HEMOGLOBIN 15.5 g/dl (12.0-15.5); LYMPH # 3.5 10^3/uL (1.5-5.0); LYMPH % 33.8 % (24.0-44.0); MEAN CORPUSCULAR HEMOGLOBIN 28.4 pg (27.0-33.0); MEAN CORPUSCULAR VOLUME 91.7 fl (80.0-96.0); MONO # 0.9 10^3/uL (0.0-0.8); MONO % 8.7 % (0.0-5.0); NEUTROPHILS # 5.6 10^3/uL (1.5-8.5); NEUTROPHILS % 54.7 % (36.0-66.0); PLATELET COUNT, AUTOMATED 303 10^3/uL (150-450); RED BLOOD COUNT 5.45 10^6/uL (4.00-5.40); WHITE BLOOD COUNT 10.2 10^3/uL (4.0-10.0)
--- NOTE | 2019-08-23 16:57 | REP ---
Five views chest and left ribs: 08/23/2019. Indication: Chest trauma. Comparison: 11/16/2018. Findings: The lungs are clear. There is no pleural effusion or pneumothorax. The cardiac silhouette is unremarkable. There is no evidence of acute rib fracture. Impression: Clear lungs. No evidence of lung contusion. No acute rib fracture on the left side detected. Electronically Signed by Bahman Charles DO 08/23/2019 04:48 P
[2019-08-23 17:13] LABS: FREE T4 1.09 NG/DL (0.76-1.46); THYROID STIMULATING HORMONE 1.61 uIU/ML (0.358-3.740)
[2019-08-23 18:26] VITALS: BP 121/60
--- NOTE | 2019-08-25 17:31 | ED PDOC ---
Post-Departure Follow-Up dr juarez faxed formal repoprt of ct c spine for fu Jay Acevedo MD Aug 25, 2019 17:30
== END 2019-08-23 18:28 | disposition home or self-care (01) ==
LOC: M ED 14:31 → EDBD 14:31 → M ED 18:28
DX: S16.1XXA Strain of muscle, fascia and tendon at neck level, initial encounter (principal); V49.50XA Passenger injured in collision with unspecified motor vehicles in traffic accident, initial encounter; E04.1 Nontoxic single thyroid nodule; R51 Headache; R11.0 Nausea
CPT/HCPCS: 36415; 70450; 71101; 72125; 80047; 84439; 84443; 85025; 99284; Q0162

== ENCOUNTER → 2019-09-12 | Outpatient (CLI) | payer BC ==
[2019-09-12 17:36] LABS: FREE T4 1.03 NG/DL (0.76-1.46); THYROID STIMULATING HORMONE 1.56 uIU/ML (0.358-3.740)
== END ==
LOC: M LAB 15:06
PROVIDERS: ATTEND Otolaryngology
DX: E04.1 Nontoxic single thyroid nodule (principal)

== ENCOUNTER → 2019-10-07 | Outpatient (REF) | payer BC | LOC: M LAB REF 09:21 | PROVIDERS: ATTEND Otolaryngology | DX: E04.1 Nontoxic single thyroid nodule (principal) ==

== ENCOUNTER → 2021-01-28 | Outpatient (REF) | payer BC, OTHER ==
[~2021-01-28] MED LIST changes: -GNP200CA2 PO; +IBUP200C90 PO
== END ==
LOC: M LAB REF 15:16
PROVIDERS: ATTEND Otolaryngology
DX: E04.1 Nontoxic single thyroid nodule (principal)

== ENCOUNTER → 2021-12-13 | Outpatient (CLI) | payer OTHER ==
[2021-12-13 15:46] LABS: BASO % 0.4 % (0.0-1.0); EOS # 0.1 10^3/uL (0.0-0.5); EOS % 1.7 % (0.0-3.0); HEMATOCRIT 47.8 % (36.0-47.0); HEMOGLOBIN 15.5 g/dl (12.0-15.5); LYMPH # 2.7 10^3/uL (1.5-5.0); LYMPH % 32.4 % (24.0-44.0); MEAN CORPUSCULAR HEMOGLOBIN 30.3 pg (27.0-33.0); MEAN CORPUSCULAR HGB CONC 32.4 g/dl (32.0-36.5); MEAN CORPUSCULAR VOLUME 93.4 fl (80.0-96.0); MONO # 0.5 10^3/uL (0.0-0.8); MONO % 6.6 % (2.0-8.0); NEUTROPHILS # 4.8 10^3/uL (1.5-8.5); NEUTROPHILS % 58.4 % (36.0-66.0); PLATELET COUNT, AUTOMATED 267 10^3/uL (150-450); RED BLOOD COUNT 5.12 10^6/uL (4.00-5.40); WHITE BLOOD COUNT 8.2 10^3/uL (4.0-10.0)
[2021-12-13 15:53] LABS: HEMATOCRIT 48.3 % (36.0-47.0)
[2021-12-13 16:05] LABS: HEMOGLOBIN A1c 5.7 %
[2021-12-13 16:19] LABS: ALBUMIN 3.3 GM/DL (3.2-5.2); ALT/SGPT 58 U/L (12-78); BILIRUBIN,TOTAL 0.8 MG/DL (0.2-1.0); BLOOD UREA NITROGEN 9 MG/DL (7-18); CALCIUM LEVEL 9.5 MG/DL (8.5-10.1); CARBON DIOXIDE LEVEL 29 MEQ/L (21-32); CHLORIDE LEVEL 109 MEQ/L (98-107); CREATININE FOR GFR 0.46 MG/DL (0.55-1.30); FERRITIN 190 NG/ML (8-252); GLOMERULAR FILTRATION RATE > 60.0 (>60); GLUCOSE, FASTING 101 MG/DL (70-100); IRON (FE) 91 UG/DL (50-170); MAGNESIUM LEVEL 1.9 MG/DL (1.8-2.4); PERCENT SATURATION 29.1 % (13.2-45.0); PHOSPHORUS LEVEL 2.8 MG/DL (2.5-4.9); SODIUM LEVEL 144 MEQ/L (136-145); TOTAL IRON BINDING CAPACITY 313 UG/DL (250-450); TOTAL PROTEIN 6.6 GM/DL (6.4-8.2)
[2021-12-14 17:37] LABS: VITAMIN B12 LEVEL 428 PG/ML (247-911)
== END ==
LOC: M WUC 11:16
PROVIDERS: ATTEND Physician Assistant Surgical
DX: K91.2 Postsurgical malabsorption, not elsewhere classified (principal); E55.9 Vitamin D deficiency, unspecified; Z98.84 Bariatric surgery status; Z86.39 Personal history of other endocrine, nutritional and metabolic disease